=== PATIENT | female | born 2000 | race Caucasian/White ===

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

== ENCOUNTER 2018-01-04 05:46 | Emergency (ER) | payer BC ==
[~2018-01-04] VITALS: Ht 165.1 cm; Wt 81.8 kg
[~2018-01-04 05:46] MED LIST changes: +ULTRAM50 MG PO
[2018-01-04 05:51] VITALS: Ht 165.1 cm; Wt 81.8 kg
[2018-01-04 07:23] LABS: HCG URINE NEGATIVE (NEGATIVE)
[2018-01-04 07:31] LABS: APPEARANCE CLEAR (CLEAR); COLOR YELLOW (YELLOW)
[2018-01-04 07:32] LABS: BILIRUBIN NEGATIVE (NEGATIVE); GLUCOSE NEGATIVE (NEGATIVE); KETONE NEGATIVE (NEGATIVE); NITRITE NEGATIVE (NEGATIVE); PROTEIN NEGATIVE (NEGATIVE); UROBILINOGEN NORMAL (NORMAL)
[2018-01-04 07:34] LABS: BACTERIA NONE SEEN /hpf (NONE SEEN); EPITHELIAL CELLS 0-5 /hpf (0-5); RED CELLS - URINE 0-5 /hpf (0-5); WHITE CELLS - URINE 0-5 /hpf (0-5)
[2018-01-04 07:40] LABS: BASOPHILS 0.3 % (0-2); EOSINOPHILS 1.4 % (0-7); HEMOGLOBIN 12.9 g/dL (12-16); IMMATURE GRANULOCYTES 0.1 % (0-5); LYMPHOCYTES 26.1 % (15-50); MCH 29.5 pg (26.0-34.0); MCHC 34.9 g/dL (31.0-37.0); MCV 84.7 fL (80.0-100.0); MONOCYTES 5.5 % (2-11); NEUTROPHILS 66.6 % (40-80); PLATELET COUNT 239 10x3/uL (130-400); RBC 4.37 10x6/uL (4.00-5.40); RDW 13.1 % (11.5-14.5); WBC 7.3 10x3/uL (4.8-10.8)
[2018-01-04 07:56] LABS: ALBUMIN 3.8 g/dL (3.4-5.0); ALKALINE PHOSPHATASE 77 U/L (46-116); ALT (SGPT) 25 U/L (10-68); BILIRUBIN - TOTAL 0.42 mg/dL (0.2-1.3); CALC OSMOLALITY 272 mosm/kg (275-300); CALCIUM 8.5 mg/dL (8.5-10.1); CARBON DIOXIDE 27.3 mmol/L (21.0-32.0); CHLORIDE - SERUM 103 mmol/L (98-107); CREATININE - SERUM 0.7 mg/dL (0.6-1.3); GLUCOSE 95 mg/dL (74-106); POTASSIUM - SERUM 3.7 mmol/L (3.5-5.1); PROTEIN - SERUM 7.5 g/dL (6.4-8.2); SODIUM 137 mmol/L (136-145); UREA NITROGEN 9 mg/dL (7-18); eGFR NON AFRICAN AMERICAN > 90 mL/min (90-120)
[2018-01-04 08:29] LABS: PRO BNP 13 pg/mL (0-125); TROPONIN-I < 0.017 ng/mL (0.000-0.060)
[2018-01-04 10:07] VITALS: BP 119/79
== END 2018-01-04 10:11 | disposition home or self-care (01) ==
LOC: D.ER 05:46
PROVIDERS: Family Medicine
DX: R55 Syncope and collapse (principal)

== ENCOUNTER 2018-01-06 14:41 | Emergency (ER) | payer BC ==
[~2018-01-06] VITALS: Ht 165.1 cm; Wt 81.8 kg
[2018-01-06 14:54] VITALS: Ht 165.1 cm; Wt 81.8 kg
[2018-01-06 15:18] LABS: BASOPHILS 0.2 % (0-2); EOSINOPHILS 0.7 % (0-7); HEMATOCRIT 37.1 % (36.0-48.0); MCH 29.7 pg (26.0-34.0); MCV 84.7 fL (80.0-100.0); MONOCYTES 5.1 % (2-11); PLATELET COUNT 243 10x3/uL (130-400); RBC 4.38 10x6/uL (4.00-5.40); WBC 8.3 10x3/uL (4.8-10.8)
[2018-01-06 15:26] LABS: HCG SERUM NEGATIVE (NEGATIVE)
[2018-01-06 15:32] LABS: ALBUMIN 3.8 g/dL (3.4-5.0); ALKALINE PHOSPHATASE 76 U/L (46-116); ALT (SGPT) 25 U/L (10-68); BILIRUBIN - TOTAL 0.55 mg/dL (0.2-1.3); CALC OSMOLALITY 275 mosm/kg (275-300); CALCIUM 8.5 mg/dL (8.5-10.1); CHLORIDE - SERUM 103 mmol/L (98-107); CREATININE - SERUM 0.9 mg/dL (0.6-1.3); GLUCOSE 82 mg/dL (74-106); POTASSIUM - SERUM 3.5 mmol/L (3.5-5.1); PROTEIN - SERUM 7.5 g/dL (6.4-8.2); SODIUM 138 mmol/L (136-145); UREA NITROGEN 15 mg/dL (7-18); eGFR NON AFRICAN AMERICAN 85 mL/min (90-120)
[2018-01-06 17:06] LABS: APPEARANCE CLEAR (CLEAR); BILIRUBIN NEGATIVE (NEGATIVE); COLOR YELLOW (YELLOW); GLUCOSE NEGATIVE (NEGATIVE); KETONE NEGATIVE (NEGATIVE); NITRITE NEGATIVE (NEGATIVE); PROTEIN NEGATIVE (NEGATIVE); SPECIFIC GRAVITY 1.015 (1.005-1.020); UROBILINOGEN NORMAL (NORMAL)
[2018-01-06 17:08] LABS: BACTERIA FEW /hpf (NONE SEEN); EPITHELIAL CELLS 0-5 /hpf (0-5); WHITE CELLS - URINE 0-5 /hpf (0-5)
[2018-01-06 19:35] VITALS: BP 112/63
== END 2018-01-06 19:18 | disposition home or self-care (01) ==
LOC: D.ER 14:41
PROVIDERS: Emergency Medicine
DX: R55 Syncope and collapse (principal); Z86.79 Personal history of other diseases of the circulatory system; S09.90XA Unspecified injury of head, initial encounter; W18.30XA Fall on same level, unspecified, initial encounter; Y93.89 Activity, other specified; Y92.019 Unspecified place in single-family (private) house as the place of occurrence of the external cause

== ENCOUNTER 2018-01-22 01:12 | Emergency (ER) | payer BC ==
[~2018-01-22] VITALS: Ht 165.1 cm; Wt 79.5 kg
[2018-01-22 01:17] VITALS: Ht 165.1 cm; Wt 79.5 kg
[2018-01-22 02:10] LABS: BASOPHILS 0.4 % (0-2); EOSINOPHILS 3.1 % (0-7); HEMATOCRIT 36.5 % (36.0-48.0); HEMOGLOBIN 12.4 g/dL (12-16); IMMATURE GRANULOCYTES 0.1 % (0-5); LYMPHOCYTES 33.6 % (15-50); MCH 29.2 pg (26.0-34.0); MCV 86.1 fL (80.0-100.0); MEAN PLATELET VOLUME 8.9 fL (7.4-10.4); NEUTROPHILS 56.8 % (40-80); PLATELET COUNT 240 10x3/uL (130-400); RBC 4.24 10x6/uL (4.00-5.40); WBC 7.5 10x3/uL (4.8-10.8)
[2018-01-22 02:22] LABS: HCG SERUM NEGATIVE (NEGATIVE)
[2018-01-22 02:28] LABS: ALBUMIN 3.6 g/dL (3.4-5.0); ALKALINE PHOSPHATASE 78 U/L (46-116); ALT (SGPT) 38 U/L (10-68); BILIRUBIN - TOTAL 0.39 mg/dL (0.2-1.3); CALC OSMOLALITY 284 mosm/kg (275-300); CALCIUM 8.5 mg/dL (8.5-10.1); CARBON DIOXIDE 29.8 mmol/L (21.0-32.0); CHLORIDE - SERUM 106 mmol/L (98-107); CREATININE - SERUM 0.7 mg/dL (0.6-1.3); GLUCOSE 104 mg/dL (74-106); PROTEIN - SERUM 7.1 g/dL (6.4-8.2); SODIUM 143 mmol/L (136-145); UREA NITROGEN 13 mg/dL (7-18); eGFR NON AFRICAN AMERICAN > 90 mL/min (90-120)
[2018-01-22 02:41] LABS: CKMB 0.4 U/L (0.0-3.6); CREATINE KINASE 46 UL (21-215); TROPONIN-I < 0.017 ng/mL (0.000-0.060)
[2018-01-22 03:35] LABS: UDS - AMPHET NEGATIVE QUAL (NEGATIVE); UDS - BARB NEGATIVE QUAL (NEGATIVE); UDS - BENZO NEGATIVE QUAL (NEGATIVE); UDS - COCAINE NEGATIVE QUAL (NEGATIVE); UDS - OPIATE NEGATIVE QUAL (NEGATIVE); UDS - PCP NEGATIVE QUAL (NEGATIVE); UDS - THC NEGATIVE QUAL (NEGATIVE)
[2018-01-22 03:43] LABS: APPEARANCE HAZY (CLEAR); BILIRUBIN NEGATIVE (NEGATIVE); COLOR YELLOW (YELLOW); GLUCOSE NEGATIVE (NEGATIVE); KETONE NEGATIVE (NEGATIVE); NITRITE POSITIVE (NEGATIVE); PROTEIN NEGATIVE (NEGATIVE); UROBILINOGEN NORMAL (NORMAL)
[2018-01-22 03:44] LABS: BACTERIA MANY /hpf (NONE SEEN); EPITHELIAL CELLS 0-5 /hpf (0-5); RED CELLS - URINE NONE SEEN /hpf (0-5); WHITE CELLS - URINE 0-5 /hpf (0-5)
[2018-01-22] MEDS ORDERED: OMNICEF300 MG PO (04:10)
[2018-01-22 04:44] VITALS: BP 110/64
== END 2018-01-22 04:44 | disposition home or self-care (01) ==
LOC: D.ER 01:12
PROVIDERS: Family Medicine
DX: R07.9 Chest pain, unspecified (principal); Z86.79 Personal history of other diseases of the circulatory system; N39.0 Urinary tract infection, site not specified; R06.02 Shortness of breath; D66 Hereditary factor VIII deficiency

== ENCOUNTER → 2018-06-05 19:54 | Outpatient (CLI) | payer BC ==
[2018-01-22 01:17] VITALS: BMI 29.1
[~2018-06-05 19:54] MED LIST changes: +OMNICEF300 MG PO
[2018-06-05 20:34] LABS: APPEARANCE CLEAR (CLEAR); COLOR YELLOW (YELLOW); GLUCOSE NEGATIVE (NEGATIVE); KETONE NEGATIVE (NEGATIVE); NITRITE NEGATIVE (NEGATIVE); PROTEIN NEGATIVE (NEGATIVE)
[2018-06-05 20:35] LABS: BILIRUBIN NEGATIVE (NEGATIVE); UROBILINOGEN NORMAL (NORMAL)
== END | disposition home or self-care (01) ==
LOC: D.LDO 19:54
PROVIDERS: Obstetrics & Gynecology
DX: O26.899 Other specified pregnancy related conditions, unspecified trimester (principal); Z3A.00 Weeks of gestation of pregnancy not specified

== ENCOUNTER 2018-07-13 16:51 | Inpatient (IN) | payer BC ==
[~2018-07-13] VITALS: Ht 157.5 cm; Wt 81.2 kg
[2018-07-13 18:06] LABS: APPEARANCE CLOUDY (CLEAR); BILIRUBIN NEGATIVE (NEGATIVE); COLOR YELLOW (YELLOW); GLUCOSE NEGATIVE (NEGATIVE); KETONE MODERATE mg/dL (NEGATIVE); NITRITE NEGATIVE (NEGATIVE); PROTEIN 3+ mg/dL (NEGATIVE); SPECIFIC GRAVITY 1.015 (1.005-1.020)
[2018-07-13 18:07] LABS: BACTERIA MODERATE /hpf (NONE SEEN); EPITHELIAL CELLS 0-5 /hpf (0-5); MUCUS <1+ /lpf (NONE SEEN); WHITE CELLS - URINE 25-50 /hpf (0-5)
[2018-07-13] MEDS ORDERED: ZOFRAN4 MG PO (18:21)
[2018-07-13] MEDS ORDERED: MACROBID100 MG PO (18:21)
[2018-07-13 19:51] VITALS: BP 129/76
[2018-07-13 21:19] VITALS: BP 119/71; BMI 32.8
[2018-07-13 21:19] LABS: BASOPHILS 0.1 % (0-2); EOSINOPHILS 0 % (0-7); HEMATOCRIT 33.6 % (36.0-48.0); HEMOGLOBIN 11.6 g/dL (12-16); IMMATURE GRANULOCYTES 0.3 % (0-5); LYMPHOCYTES 12.1 % (15-50); MCH 30.1 pg (26.0-34.0); MCHC 34.5 g/dL (31.0-37.0); MCV 87.3 fL (80.0-100.0); MEAN PLATELET VOLUME 8.4 fL (7.4-10.4); MONOCYTES 4.8 % (2-11); NEUTROPHILS 82.7 % (40-80); PLATELET COUNT 204 10x3/uL (130-400); RBC 3.85 10x6/uL (4.00-5.40); RDW 13.9 % (11.5-14.5); WBC 6.7 10x3/uL (4.8-10.8)
[2018-07-13 21:40] LABS: ALBUMIN 2.8 g/dL (3.4-5.0); ALKALINE PHOSPHATASE 98 U/L (46-116); ALT (SGPT) 23 U/L (10-68); BILIRUBIN - TOTAL 0.78 mg/dL (0.2-1.3); CALC OSMOLALITY 276 mosm/kg (275-300); CALCIUM 7.9 mg/dL (8.5-10.1); CARBON DIOXIDE 21.7 mmol/L (21.0-32.0); CHLORIDE - SERUM 102 mmol/L (98-107); CREATININE - SERUM 0.6 mg/dL (0.6-1.3); GLUCOSE 126 mg/dL (74-106); PROTEIN - SERUM 7.5 g/dL (6.4-8.2); SODIUM 139 mmol/L (136-145); UREA NITROGEN 4 mg/dL (7-18); eGFR NON AFRICAN AMERICAN > 90 mL/min (90-120)
[2018-07-14 13:38] VITALS: Ht 157.5 cm; Wt 81.2 kg
[2018-07-15 07:41] VITALS: BP 109/62
--- NOTE | 2018-07-15 07:41 | NUR ---
SEE [facility] FOR NOTES ON ANTEPARTUM PT.
[2018-07-15] MEDS ORDERED: TYLENOL W/CODEI1 TAB PO (08:53)
[2018-07-15] MEDS ORDERED: MACROBID100 MG PO (08:53)
== END 2018-07-15 09:47 | disposition home or self-care (01) | DRG 833 ==
LOC: D.ER 16:51 → D.LD 19:41
PROVIDERS: Emergency Medicine; ADMIT Obstetrics & Gynecology; ATTEND Obstetrics & Gynecology
DX: O23.02 Infections of kidney in pregnancy, second trimester (principal); Z3A.26 26 weeks gestation of pregnancy

== ENCOUNTER → 2018-07-24 09:53 | Outpatient (CLI) | payer BC ==
[2018-07-14 13:38] VITALS: BMI 32.7
[~2018-07-24 09:53] MED LIST changes: +MACROBID100 MG PO; +TYLENOL W/CODEI1 TAB PO; +ZOFRAN4 MG PO
[2018-07-24 11:03] LABS: HEMATOCRIT 35.1 % (36.0-48.0); HEMOGLOBIN 12.2 g/dL (12-16); MCH 30.2 pg (26.0-34.0); MCHC 34.8 g/dL (31.0-37.0); MCV 86.9 fL (80.0-100.0); MEAN PLATELET VOLUME 9.1 fL (7.4-10.4); RBC 4.04 10x6/uL (4.00-5.40); RDW 14.2 % (11.5-14.5); WBC 10.9 10x3/uL (4.8-10.8)
[2018-07-24 11:04] LABS: PLATELET COUNT 254 10x3/uL (130-400)
[2018-07-24 11:19] LABS: ALBUMIN 2.8 g/dL (3.4-5.0); ALKALINE PHOSPHATASE 88 U/L (46-116); ALT (SGPT) 23 U/L (10-68); BILIRUBIN - TOTAL 1.12 mg/dL (0.2-1.3); CALC OSMOLALITY 272 mosm/kg (275-300); CALCIUM 8.1 mg/dL (8.5-10.1); CARBON DIOXIDE 24.3 mmol/L (21.0-32.0); CHLORIDE - SERUM 102 mmol/L (98-107); CREATININE - SERUM 0.5 mg/dL (0.6-1.3); GLUCOSE 113 mg/dL (74-106); POTASSIUM - SERUM 3.2 mmol/L (3.5-5.1); SODIUM 137 mmol/L (136-145); UREA NITROGEN 7 mg/dL (7-18); eGFR NON AFRICAN AMERICAN > 90 mL/min (90-120)
[2018-07-24 11:32] LABS: EOSINOPHILS 1 % (0-7); LYMPHOCYTES 6 % (15-50); MONOCYTES 1 % (2-11); NEUTROPHILS 88 % (40-80); PLATELET ESTIMATE NORMAL
== END | disposition home or self-care (01) ==
LOC: D.LDO 09:53
PROVIDERS: ATTEND Obstetrics & Gynecology
DX: O26.899 Other specified pregnancy related conditions, unspecified trimester (principal); Z3A.00 Weeks of gestation of pregnancy not specified

== ENCOUNTER → 2018-08-27 11:03 | Outpatient (CLI) | payer BC ==
[2018-07-14 13:38] VITALS: BMI 32.7
[2018-08-27 11:43] LABS: CALC OSMOLALITY 278 mosm/kg (275-300); CALCIUM 8.7 mg/dL (8.5-10.1); CARBON DIOXIDE 21.2 mmol/L (21.0-32.0); CHLORIDE - SERUM 106 mmol/L (98-107); CREATININE - SERUM 0.5 mg/dL (0.6-1.3); GLUCOSE 105 mg/dL (74-106); POTASSIUM - SERUM 3.6 mmol/L (3.5-5.1); SODIUM 141 mmol/L (136-145); UREA NITROGEN 6 mg/dL (7-18); eGFR NON AFRICAN AMERICAN > 90 mL/min (90-120)
== END | disposition home or self-care (01) ==
LOC: D.LDO 11:03
PROVIDERS: ATTEND Obstetrics & Gynecology
DX: O26.899 Other specified pregnancy related conditions, unspecified trimester (principal); Z3A.33 33 weeks gestation of pregnancy; R55 Syncope and collapse

== ENCOUNTER 2018-09-16 02:25 | Emergency (ER) | payer BC ==
[~2018-09-16] VITALS: Ht 157.5 cm; Wt 85.5 kg
[2018-09-16 02:32] VITALS: BP 135/110; Ht 157.5 cm; Wt 85.5 kg
== END 2018-09-16 02:53 | disposition short-term general hospital (02) ==
LOC: D.ER 02:25
DX: O26.893 Other specified pregnancy related conditions, third trimester (principal); Z3A.36 36 weeks gestation of pregnancy; T14.8XXA Other injury of unspecified body region, initial encounter; Y04.2XXA Assault by strike against or bumped into by another person, initial encounter; Y93.89 Activity, other specified; Y92.89 Other specified places as the place of occurrence of the external cause; R10.9 Unspecified abdominal pain

== ENCOUNTER → 2018-09-16 03:00 | Outpatient (CLI) | payer BC ==
[2018-09-16 02:32] VITALS: BMI 34.4
[2018-09-16 04:36] LABS: BASOPHILS 0.1 % (0-2); EOSINOPHILS 0.5 % (0-7); HEMATOCRIT 34.8 % (36.0-48.0); HEMOGLOBIN 12.3 g/dL (12-16); IMMATURE GRANULOCYTES 0.5 % (0-5); LYMPHOCYTES 21.4 % (15-50); MCHC 35.3 g/dL (31.0-37.0); MCV 87.7 fL (80.0-100.0); MEAN PLATELET VOLUME 9.3 fL (7.4-10.4); MONOCYTES 4.5 % (2-11); PLATELET COUNT 221 10x3/uL (130-400); RBC 3.97 10x6/uL (4.00-5.40); RDW 13.9 % (11.5-14.5); WBC 10.4 10x3/uL (4.8-10.8)
[2018-09-16 04:41] LABS: APPEARANCE CLEAR (CLEAR); BILIRUBIN NEGATIVE (NEGATIVE); COLOR YELLOW (YELLOW); GLUCOSE NEGATIVE (NEGATIVE); KETONE NEGATIVE (NEGATIVE); NITRITE NEGATIVE (NEGATIVE); PROTEIN NEGATIVE (NEGATIVE); SPECIFIC GRAVITY 1.025 (1.005-1.020); UROBILINOGEN NORMAL (NORMAL)
[2018-09-16 04:46] LABS: APTT 25.4 SECONDS (22.8-39.4); INR 0.97 (0.85-1.17); PROTIME 12.4 SECONDS (11.6-15.0)
== END | disposition home or self-care (01) ==
LOC: D.LDO 03:00
PROVIDERS: ATTEND Obstetrics & Gynecology
DX: O26.893 Other specified pregnancy related conditions, third trimester (principal)

== ENCOUNTER → 2018-09-17 10:23 | Outpatient (CLI) | payer BC ==
[2018-09-16 02:32] VITALS: BMI 34.4
== END | disposition home or self-care (01) ==
LOC: D.LDO 10:23
PROVIDERS: ATTEND Obstetrics & Gynecology
DX: O26.893 Other specified pregnancy related conditions, third trimester (principal); Z3A.35 35 weeks gestation of pregnancy

== ENCOUNTER → 2018-09-22 10:35 | Outpatient (CLI) | payer BC ==
[2018-09-16 02:32] VITALS: BMI 34.4
[2018-09-22 12:28] LABS: BASOPHILS 0.2 % (0-2); EOSINOPHILS 0.5 % (0-7); HEMOGLOBIN 12.6 g/dL (12-16); IMMATURE GRANULOCYTES 0.2 % (0-5); LYMPHOCYTES 22.6 % (15-50); MCH 30.8 pg (26.0-34.0); MEAN PLATELET VOLUME 9.2 fL (7.4-10.4); MONOCYTES 4.5 % (2-11); PLATELET COUNT 192 10x3/uL (130-400); RBC 4.09 10x6/uL (4.00-5.40); RDW 13.9 % (11.5-14.5); WBC 8.2 10x3/uL (4.8-10.8)
[2018-09-22 12:34] LABS: UDS - AMPHET NEGATIVE QUAL (NEGATIVE); UDS - BARB NEGATIVE QUAL (NEGATIVE); UDS - BENZO NEGATIVE QUAL (NEGATIVE); UDS - COCAINE NEGATIVE QUAL (NEGATIVE); UDS - OPIATE NEGATIVE QUAL (NEGATIVE); UDS - PCP NEGATIVE QUAL (NEGATIVE); UDS - THC NEGATIVE QUAL (NEGATIVE)
[2018-09-22 12:43] LABS: APPEARANCE CLEAR (CLEAR); BILIRUBIN NEGATIVE (NEGATIVE); COLOR STRAW (YELLOW); GLUCOSE NEGATIVE (NEGATIVE); KETONE NEGATIVE (NEGATIVE); NITRITE NEGATIVE (NEGATIVE); PROTEIN NEGATIVE (NEGATIVE); SPECIFIC GRAVITY 1.005 (1.005-1.020); UROBILINOGEN NORMAL (NORMAL)
[2018-09-22 12:45] LABS: BACTERIA FEW /hpf (NONE SEEN); EPITHELIAL CELLS 0-5 /hpf (0-5); RED CELLS - URINE 0-5 /hpf (0-5); WHITE CELLS - URINE NSEEN /hpf (0-5)
== END | disposition home or self-care (01) ==
LOC: D.LDO 10:35
PROVIDERS: ATTEND Obstetrics & Gynecology
DX: O26.853 Spotting complicating pregnancy, third trimester (principal); Z3A.37 37 weeks gestation of pregnancy

== ENCOUNTER → 2018-09-30 14:55 | Outpatient (CLI) | payer BC ==
[2018-09-16 02:32] VITALS: BMI 34.4
[2018-09-30 15:47] LABS: APPEARANCE CLEAR (CLEAR); BILIRUBIN NEGATIVE (NEGATIVE); COLOR YELLOW (YELLOW); GLUCOSE NEGATIVE (NEGATIVE); KETONE NEGATIVE (NEGATIVE); NITRITE NEGATIVE (NEGATIVE); PROTEIN NEGATIVE (NEGATIVE); SPECIFIC GRAVITY 1.015 (1.005-1.020); UROBILINOGEN NORMAL (NORMAL)
--- NOTE | 2018-09-30 19:32 | NUR ---
HUMIDITY IN ROOM AT 74%, DR WINTER AWARE, PROCEEDED ON WITH [facility]. 1912 VIABLE BABY BOY DELIVERD, CORD BLOOD AND GASES DONE AND SENT OUT, MARK.
--- NOTE | 2018-09-30 20:17 | NUR ---
FUNDUS IS BOGGY, MIDLINE 2U. MAUREEN PAD IN PLACE, NO CLOTS PRESENT. WILL CONTINUE TO MONITOR.
== END | disposition home or self-care (01) ==
LOC: D.LDO 14:55
PROVIDERS: ATTEND Obstetrics & Gynecology
DX: O26.893 Other specified pregnancy related conditions, third trimester (principal); Z3A.37 37 weeks gestation of pregnancy

== ENCOUNTER 2018-09-30 16:41 | Inpatient (IN) | payer BC ==
[~2018-09-30] VITALS: Ht 157.5 cm; Wt 87.5 kg
[2018-09-30] VITALS (8 sets, daily range): BP systolic 125–135; BP diastolic 67–94; Ht 157.5 cm; Wt 87.5 kg
[2018-09-30 17:22] LABS: HEMATOCRIT 37.2 % (36.0-48.0); HEMOGLOBIN 13.3 g/dL (12-16); MCH 31.1 pg (26.0-34.0); MCHC 35.8 g/dL (31.0-37.0); MCV 86.9 fL (80.0-100.0); MEAN PLATELET VOLUME 9.5 fL (7.4-10.4); RBC 4.28 10x6/uL (4.00-5.40); WBC 10.7 10x3/uL (4.8-10.8)
[2018-09-30 18:29] LABS: APTT 27.2 SECONDS (22.8-39.4); INR 0.96 (0.85-1.17); PROTIME 12.3 SECONDS (11.6-15.0)
--- NOTE | 2018-09-30 20:37 | NUR ---
RECEIVED PT VIA BED FROM POST C/S PER DR WINTER, PT TO ROOM 1273, IV IN RIGHT WRIST INTACT WITH NO REDNESS OR EDEMA INFUSING NS WITH PITOCIN VIA PUMP AT 125 ML/HR, VS INITIATED, FF, ML, U/U, LITE BLEEDING NOTED WITH NO CLOTS, BIKINI INC WITH SMALL DRESSING INTACT WITH LITE SMALL DRAINAGE NOTED, ICE PACK TO ABD, PADRON CATH INTACT DRAINING DARK YELLOW URINE, SCD'S ON AND CONNECTED TO PUMP AND WORKING PROPERLY, PT ORIENTED TO ROOM, BED IN LOW POSITION, SIDE RAILS X 2, CALL LIGHT IN REACH, FAMILY TO ROOM
--- NOTE | 2018-09-30 21:33 | NUR ---
ADM TAMERA SIMONP PER MD ORDERS FOR PAIN
--- NOTE | 2018-09-30 23:00 | NUR ---
DR WINTER ON UNIT, REPORT OF LOW OUTPUT, DR WINTER WILL PUT ORDERS IN FOR BOLUS
--- NOTE | 2018-09-30 23:29 | NUR ---
BOLUS INITIATED PER MD ORDERS, PT REQUESTED AND SERVED SHER AND JOCELYN, PEYTONIES KINGSTONHER NEEDS, FOB IN ROOM
--- NOTE | 2018-10-01 00:25 | NUR ---
EMPTIED PADRON, MAUREEN CARE DONE WITH WET WARM WASH CLOTHS, LITE-MOD BLEEDING NOTED WITH 1 QUARTER SIZE CLOT NOTED, BLUE CHUX AND MAUREEN PAD CHANGED
--- NOTE | 2018-10-01 00:25 | NUR ---
IV SLIGHTLY INFILTRATED, IV DISCONTINUED, PRESSURE HELD, BANDAID APPLIED, WILL HAVE L&D NURSE COME TO RESTART IV
--- NOTE | 2018-10-01 00:40 | NUR ---
NICOLASA AYERS RN TO ROOM FOR IV START, ATTEMPTED TWICE WITH NO SUCCESS, WILL HAVE SARAY STAPLES RN, TEST EXAMINER COME TO ATTEMPT
--- NOTE | 2018-10-01 01:00 | NUR ---
PT BABY, REQUESTS TO TRY IV AFTER
--- NOTE | 2018-10-01 01:49 | NUR ---
PT FINISHED , INFORMED PT THAT SARAY STAPLES RN WILL BE IN SOON SHE CAN FOR IV, PT C/O INC PAIN, INFORMED PT THAT I WILL GO AHEAD AND ADM PO PAIN MED AT THIS TIME SINCE IT IS ORDERED AND THATS WHAT SHE WILL BE TAKING ANYWAY, PT VERBALIZES UNDERSTANDING, PT REPORTS THAT SHE DOESN'T HAVE A PROBLEM TAKING PO MEDS, ADM PERCOCET PER MD ORDERS, SEE SHER GAVIRIA PROVIDED FOR SNACK, PT DENIES FURHTER NEEDS
[2018-10-01 02:22] LABS: BASOPHILS 0.1 % (0-2); EOSINOPHILS 0 % (0-7); HEMATOCRIT 30.5 % (36.0-48.0); HEMOGLOBIN 10.7 g/dL (12-16); IMMATURE GRANULOCYTES 0.2 % (0-5); LYMPHOCYTES 8.3 % (15-50); MCH 30.4 pg (26.0-34.0); MCHC 35.1 g/dL (31.0-37.0); MCV 86.6 fL (80.0-100.0); MEAN PLATELET VOLUME 9.4 fL (7.4-10.4); NEUTROPHILS 88.4 % (40-80); PLATELET COUNT 203 10x3/uL (130-400); RBC 3.52 10x6/uL (4.00-5.40)
[2018-10-01 02:23] LABS: WBC 13.5 10x3/uL (4.8-10.8)
--- NOTE | 2018-10-01 02:42 | NUR ---
SARAY STAPLES, RN NURSE PRESCHOOL TEACHER AIDE TO ROOM FOR IV START, ATTEMPTED ONCE WITH NO SUCCESS
--- NOTE | 2018-10-01 02:55 | NUR ---
CALLED MED 2, WILL SEND NURSE DOWN TO TRY IV START
--- NOTE | 2018-10-01 03:05 | NUR ---
LIZZY TYLER RN TO ROOM FOR IV START
--- NOTE | 2018-10-01 03:35 | NUR ---
THIS RN TO ROOM, LIZZY TYLER, RN REPORTS TO HE STARTED IV RIGHT OBOVE AREA OF PREVIOUS IV, LIZZY TYLER, RN LEAVES ROOM, THIS RN RESTARTED NS WITH PITOCIN PER MD ORDERS, SEE EMAR, IV SHOWING OCCLUDED, DISCONNECTED, ATTEMPTED SALINE FLUSH, FLUSHED SLOW, NS WITH PITOCIN RESTARTED, PT STATES "IT'S REALLY HURTING", IV STOPPED, WILL HAVE SOMEONE ELSE COME AND START ANOTHER IV, PT VERBALIZES UNDERSTANDING, FOB AND BABY IN OPEN CRIB CART AT BEDSIDE
--- NOTE | 2018-10-01 03:48 | NUR ---
SPOKE TO SANTIAGO AL RN FROM ICU, SHE REPORTS THAT SHE WILL COME AND TRY TO START IV
--- NOTE | 2018-10-01 03:56 | NUR ---
SANTIAGO AL RN TO ROOM FOR IV START
--- NOTE | 2018-10-01 04:15 | NUR ---
SANTIAGO AL RN OUT OF ROOM, REPORTS THAT SHE STARTED IV, 2ND ATTEMPT IN LEFT HAND
--- NOTE | 2018-10-01 04:20 | NUR ---
THIS RN TO ROOM, RESTARTED NS WITH PITOCIN AT THIS TIME
[2018-10-01 04:29] VITALS: BP 122/85
--- NOTE | 2018-10-01 04:29 | NUR ---
BHARATEF HUNG IVPB PER MD ORDERS, SEE EMAR, VS OBTAINED, MAUREEN CARE DONE WITH WET WARM WASH CLOTHS, LITE-MOD BLEEDING NOTED WITH NO CLOTS, PINK PAD, BLUE CHUX AND MAUREEN PAD CHANGED, FRESH ICE PACK TO ABD, I&O'S COLLECTED, PT C/O INC PAIN, WILL ADM PAIN MED WHEN DUE, FOB, INFANT IN OPEN CRIB CART AND PT'S MOM AND SISTER AT BEDSIDE
--- NOTE | 2018-10-01 05:47 | NUR ---
PT AWAKE, VISITING WITH FOB AND FAMILY, PT'S MOM HOLDING INFANT, ADM PERCOCET AND HUNG LR TO INFUSE AT 150 ML/HR PER MD ORDERS, SEE EMAR, PT DENIES FURTHER NEEDS
--- NOTE | 2018-10-01 07:00 | NUR ---
SHIFT REPORT TO DAY SHIFT
[2018-10-01 07:25] VITALS: BP 118/69
--- NOTE | 2018-10-01 07:25 | NUR ---
RECEIVED PT SITTING IN HIGH VELA'S POSITION IN BED. VISITS WITH FAMILY. VSS. HRRR WITHOUT AUDIBLE MURMUR. BBS CLEAR. BS X 4. ABDOMEN SOFT/NON-DISTENDED. ABDOMINAL DRESSING DRY WITH OLD SEROSANGUINOUS DRAINAGE NOTED/CIRCLED. FUNDUS FIRM AT U/U. RUBRA LOCHIA SMALL AMT. PERIPAD CHANGED. PADRON TO GRAVITY DRAINING DARK, YELLOW URINE. NEG HOMANS' SIGN. PPP. NO EDEMA NOTED TO BLE. TEDS AND SCDS ON BLE. PUMP ON. PIV OF LR INFUSING AT 150 ML/HR. SITE CLEAR TO LEFT HAND. FRESH ICE PACK TO INCISION. ICE WATER AND LEMON-NEWTOK SODA PROVIDED TO PT. PT ENCOURAGED TO PO HYDRATE. VERBALIZES UNDERSTANDING. SR UPX 2. CALL LIGHT IN REACH.
--- NOTE | 2018-10-01 08:30 | NUR ---
PT SITTING UP IN BED. STATES "I THINK I NEED MY PAD CHANGED". PERIPAD CHANGED WITH A SMALL DIME SIZED AMT OF MAG GEIGER NOTED. PT DENIES OTHER NEEDS OR C/O.
--- NOTE | 2018-10-01 09:15 | NUR ---
PT SITTING UP IN BED. STATES "I SENT THE BABY TO THE NURSERY SO I COULD TAKE A NAP AND ALL I CAN DO IS SIT HERE AND WISH HE WAS BACK IN HERE". PT ENCOURAGED TO REST AT THIS TIME. PT VERBALIZES UNDERSTANDING.
[2018-10-01 09:19] LABS: UDS - AMPHET NEGATIVE QUAL (NEGATIVE); UDS - BARB NEGATIVE QUAL (NEGATIVE); UDS - BENZO NEGATIVE QUAL (NEGATIVE); UDS - COCAINE NEGATIVE QUAL (NEGATIVE); UDS - OPIATE NEGATIVE QUAL (NEGATIVE); UDS - PCP NEGATIVE QUAL (NEGATIVE); UDS - THC NEGATIVE QUAL (NEGATIVE)
--- NOTE | 2018-10-01 10:15 | NUR ---
PT SITTING UP IN BED. VISITS WITH SO IN ROOM. REQUESTS BE BROUGHT TO ROOM AT THIS TIME FOR FEEDING. NURSERY STAFF NOTIFIED.
--- NOTE | 2018-10-01 10:40 | NUR ---
NURSERY STAFF AT DESK. STATES PT ASKING FOR PILLOW/BLANKET AND NEVER GOT ONE. THIS NURSE TO ROOM WITH PILLOW, SHEETS AND BLANKET. PT STATES "I ASKED FOR THOSE LAST NIGHT AND THEY NEVER BROUGHT THEM".
--- NOTE | 2018-10-01 10:45 | NUR ---
200 ML OF DARK, YELLOW URINE NOTED IN PADRON. PT AGAIN, ENCOURAGED TO PO HYDRATE PT HAS ONLY TAKEN IN 100 ML OF APPLE JUICE AND VERY LITTLE WATER AND LEMON-[place] SODA SINCE 724 THIS AM.
--- NOTE | 2018-10-01 12:16 | NUR ---
PT SO AT DESK. STATES PT REQUESTING PAIN MED. PERCOCET 10/325 GIVEN PO ORDERED.
--- NOTE | 2018-10-01 13:03 | NUR ---
CLARIFICATION ORDER RECEIVED ON ANCEF # OF DOSES TO BE 3 TOTAL. ORDERS RECEIVED.
[2018-10-01 13:07] VITALS: BP 123/63
--- NOTE | 2018-10-01 13:07 | NUR ---
VSS. ABDOMINAL DRESSING WITH OLD SEROSANGUINOUS DISCHARGE NOTED. PERIPAD WITH SMALL AMT OF RUBRA LOCHIA NOTED.
--- NOTE | 2018-10-01 13:15 | NUR ---
PIV CONVERTED TO SALINE LOCK. PADRON DC'D WITH 150 ML OF DARK, YELLOW URINE NOTED IN UROMETER. PT OOB, SLOWLY. PT AMBULATES WITH STEADY GAIT TO BR. PERICARE DONE. GOWN CHANGED. PANTIES AND PAD ON. PT REQUESTS TO AMBULATE IN HALLS AT THIS TIME. LUIZ ACTIVITY WELL.
--- NOTE | 2018-10-01 15:00 | NUR ---
DR WINTER ON UNIT. VISITS WITH PT. ORDER RECEIVED.
--- NOTE | 2018-10-01 16:30 | NUR ---
PT SITTING UP ON COUCH. VISITS WITH FAMILY. DENIES NEEDS OR C/O.
--- NOTE | 2018-10-01 16:56 | OP ---
PATIENT NAME: PEDRO JA MEDICAL RECORD: [id number] :98 LOCATION:[id number] ADMISSION DATE:09/30/18 SURGEON: DON WINTER MD DATE OF OPERATION: 09/30/2018 PREOPERATIVE DIAGNOSES: 1. at 38 weeks and 3 days. 2. Labor. 3. History of supraventricular tachycardia and cardiac ablation. 4. von Willebrand disease. POSTOPERATIVE DIAGNOSES: 1. at 38 weeks and 3 days. 2. Labor. 3. History of supraventricular tachycardia and cardiac ablation. 4. von Willebrand disease PROCEDURE: Primary low transverse section. SURGEON: Don Winter MD TURNER AND FORMER AUTOMATIC: Janusz Wynn. ANESTHESIOLOGIST: Gumaro Meade MD ANESTHESIA: General anesthetic with endotracheal intubation. FINDINGS: Viable male infant, vertex presentation, Apgars 9 and 9, weight 3092 grams. Unremarkable uterus, tubes, and ovaries bilaterally. SPECIMENS REMOVED: Placenta. SPECIMEN DISPOSITION: Discarded. ESTIMATED BLOOD LOSS: 850 cc. FLUIDS: 1700 cc lactated Ringer's. URINE OUTPUT: 30 cc of clear urine. COMPLICATIONS: None. DRAIN: Soto to gravity. INDICATIONS: The patient is a 18-year-old G1, para 0 with a history of cardiac ablation and von Willebrand disease. The patient has been counseled and desires primary low transverse section. The patient is given DDAVP prior to this procedure. Risks, benefits as well as limitations of given to the patient. DESCRIPTION OF PROCEDURE: The patient was taken to the operating room and she was fully started and prepped and draped. The patient undergoes rapid sequence induction and was intubated. Upon release from anesthesia, a low transverse incision was made on the abdomen, carried down to the underlying layer of the fascia, which was opened in the midline and extended out laterally. The rectus OPERATIVE REPORT [id number] PEDRO AJ bellies were dissected free superiorly and inferiorly and then in the midline. The peritoneum was now entered and the peritoneal opening extended. DeLee all-purpose retractors inserted and a low transverse hysterotomy was performed after developing the bladder flap. The was delivered on to the abdomen atraumatically. Cord was doubly clamped and cut and the infant passed to the awaiting attendant. Cord blood samples were now obtained. The placenta was now delivered via Crede maneuver. The uterus exteriorized, cleared of all clot and debris and the hysterotomy closed with a running locked stitch of chromic. Posterior cul-de-sac is irrigated. After irrigating the cul-de-sac, the uterus was returned to the abdomen and hysterotomy was inspected and found to be hemostatic. The rectus bellies and the peritoneum was reapproximated in the midline with a loose interrupted stitch. The rectus bellies were inspected and found to be hemostatic. The fascia was now closed with a running looped PDS. Subcutaneous tissues were irrigated, bleeding vessels cauterized, and skin reapproximated with selina. Sterile dressing is applied. Sponge, lap, needle counts were correct times 2. TRANSINT:[id number] Voice Confirmation ID: [id number] DOCUMENT ID: [id number] DON WINTER MD at 1656 CC: [id number] DICTATION DATE: 09/30/181938 3RD PRESSMAN: 10/01/18 0245 ADM IN [facility] [address] [id number]
[2018-10-01 17:34] VITALS: BP 124/78
--- NOTE | 2018-10-01 17:38 | NUR ---
PT SITTING UP ON COUCH. REPOSITIONS TO BED FOR VS. VSS. PT C/O INCISIONAL PAIN/BURNING OF "8" ON 0-10 PAIN SCALE. PERCOCET 10/325 AND MYLICON 80 MG GIVEN PO ORDERED.
--- NOTE | 2018-10-01 18:00 | NUR ---
PT UP TO SHOWER. LINENS PROVIDED. BED LINENS CHANGED. PT REQUESTS SO TO ASSIST PT WITH SHOWER.
--- NOTE | 2018-10-01 19:00 | NUR ---
REPORT RECEIVED FROM ROME THOMPSON. NO REPORTS OF DISTRESS RECEIVED.
[2018-10-01 19:32] VITALS: BP 109/63
--- NOTE | 2018-10-01 19:32 | NUR ---
PATIENT SITTING UP IN BED HOLDING . PATIENT HANDED TO FATHER. ASSESSMENT AND VITAL SIGNS DONE AT THIS TIME. RESPIRATIONS AT EASE. LUNG SOUNDS CLEAR IN ALL ORTEZ. HEART REGULAR RATE AND RHYTHM. ABDOMEN SOFT AND TENDER TO TOUCH. BOWEL SOUNDS PRESENT IN ALL QUADRANTS. FUNDUS FIRM AND 2 BELOW UMBILICUS. SCANT AMOUNT OF LOCHIA NOTED ON MAUREEN PAD. NO REDNESS, EDEMA, OR DRAINAGE NOTED TO INCISION. JOE INTACT. PATIENT DENIES PASSING GAS, BUT STATES SHE HAS BEEN BURPING. NO EDEMA NOTED TO EXTREMITIES. BARBARA HOSE NOTED TO BLE. SL NOTED TO R HAND. NO REDNESS OR EDEMA NOTED. PATIENT RATES PAIN 5 OUT OF 10 AT THIS TIME. BED IN LOWEST POSITION, SIDE RAILS UP X 2, C/L AND WATER WITHIN REACH.
--- NOTE | 2018-10-01 19:32 | NUR ---
PATIENT SITTING UP IN BED HOLDING . PATIENT HANDED INFANT TO FATHER. ASSESSMENT AND VITAL SIGNS DONE AT THIS TIME. RESPIRATIONS AT EASE. LUNG SOUNDS CLEAR IN ALL ORTEZ. HEART REGULAR RATE AND RHYTHM. ABDOMEN SOFT AND TENDER TO TOUCH. BOWEL SOUNDS PRESENT IN ALL QUADRANTS. FUNDUS FIRM AND 2 BELOW UMBILICUS. SCANT AMOUNT OF LOCHIA NOTED TO MAUREEN PAD. NO REDNESS, EDEMA, OR DRAINAGE NOTED TO INCISION. JOE INTACT, 16 JOE NOTED. PATIENT DENIES PASSING GAS, STATES SHE HAS BURPED A FEW TIMES. NO EDEMA NOTED TO EXTREMITIES. BARBARA HOSJamila NOTED TO BLE. SL TO L HAND. NO REDNESS OR EDEMA NOTED. PATIENT RATES PAIN 5 OUT OF 10. BED IN LOWEST POSITION, SIDE RAILS UP X 2, C/L AND WATER WITHIN REACH.
--- NOTE | 2018-10-01 20:15 | NUR ---
PATIENT AMBULATING IN HALLWAY AT THIS TIME WITH SIGNIFICANT OTHER AT SIDE. DENIES ANY NEEDS OR CONCERNS.
--- NOTE | 2018-10-01 21:14 | NUR ---
PATIENT SITTING UP IN BED. RATES PAIN 8 OUT OF 10. PRN PERCOCET 10/325 ADMINISTERED PO AT THIS TIME. PATIENT HAD AMBULATED TO BATHROOM AND VOIDED 100 CC'S OF DARK YELLOW URINE. BED IN LOWEST POSITION, SIDE RAILS UP X 2, C/L AND WATER WITHIN REACH. PATIENT DENIES ANY FURTHER NEEDS.
--- NOTE | 2018-10-01 22:45 | NUR ---
PATIENT SITTING UP IN BED HOLDING INFANT . STATES PAIN 6 OUT OF 10. DENIES ANY NEEDS AT THIS TIME. BED IN LOWEST POSITION, SIDE RAILS UP X 2,C/L AND WATER WITHIN REACH.
[2018-10-01 23:07] VITALS: BP 117/70
--- NOTE | 2018-10-01 23:30 | NUR ---
PATIENT SITTING UP IN BED HOLDING INFANT. DENIES ANY NEEDS AT THIS TIME. BED IN LOWEST POSITION, SIDE RAILS UP X 2, C/L AND WATER WITHIN REACH.
--- NOTE | 2018-10-02 01:15 | NUR ---
PATIENT AMBULATING TO BR. PATIENT VOIDED 400 CC'S OF DARK YELLOW URINE. PATIENT STATES PAIN 02/12. PRN PERCOCET 10/325 ADMINISTERED PO AT THIS TIME. PATIENT DENIES FURTHER NEEDS. BED IN LOWEST POSITION, SIDE RAILS UP X 2, C/L AND WATER WITHIN REACH.
--- NOTE | 2018-10-02 03:10 | NUR ---
PATIENT LYING IN BED WITH EYES CLOSED. EASILY AROUSED. DENIES ANY NEEDS OR CONCERNS. BED IN LOWEST POSITION, SIDE RAILS UP X 2, C/L AND WATER WITHIN REACH.
[2018-10-02 04:18] VITALS: BP 121/63
--- NOTE | 2018-10-02 04:18 | NUR ---
PATIENT LYING QUIETLY IN BED WITH EYES CLOSED. EASILY AROUSED. VITAL SIGNS DONE AT THIS TIME. DENIES ANY NEEDS OR CONCERNS AT THIS TIME. BED IN LOWEST POSITION, SIDE RAILS UP X 2, C/L AND WATER WITHIN REACH.
--- NOTE | 2018-10-02 05:42 | NUR ---
PATIENT SITTING UP IN BED. STATES SHE JUST AMBULATED TO AND VOIDED. PATIENT VOIDED 600 CC'S OF CLEAR YELLOW URINE. STATE PAIN 10/10 AFTER AMBULATING. PRN PERCOCET 10/325 ADMINISTERED PO AT THIS TIME. PATIENT DENIES FURTHER NEEDS. BED IN LOWEST POSITION, SIDE RAILS UP X 2, C/L AND WATER WITHIN REACH.
--- NOTE | 2018-10-02 06:25 | NUR ---
PATIENT SITTING UP IN BED HOLDING INFANT. STATES PAIN 5 OUT OF 10. DENIES ANY NEEDS OR CONCERNS. BED IN LOWEST POSITION, SIDE RAILS UP X 2, C/L AND WATER WITHIN REACH.
[2018-10-02 07:21] LABS: RAPID PLASMA REAGIN Non Reactive (Non Reactive)
[2018-10-02 07:34] VITALS: BP 114/73
--- NOTE | 2018-10-02 07:34 | NUR ---
SHIFT ASSESSMENT COMPLETED AT THIS TIME. PT AAOX3 SITTING UP IN BED WITH REGULAR MEAL TRAY SERVED. INFANT IN ARMS OF GUEST IN ROOM. GUESTS IN ROOM X3. PT REQUESTING BENADRYL REPORTING GENERALIZED ITCHING. SAME PROVIDED. HR-RRR, PPP, BREATH SOUNDS CLEAR & UNLABORED X2. BOWEL SOUNDS ACTIVE X4. INCISION TO ABD C/D/I WITH JOE. NO ERYTHEMA OR EDEMA NOTED TO SITE.FUNDUS FIRM AND BELOW UMBILICUS. PT REPORTS SCANT TO SMALL LOCHIA WHEN VOIDING, NO CLOTS. 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 PT REQUESTS PIV D/C'D. SL TO LT HAND D/C'D WITH CATH TIP INTACT. PRESSURE HELD TO SITE UNTIL BLEEDING STOPPED. BANDAID PLACED OVER SITE. PT TOLERATED WELL. PT INQUIRES ABOUT PAIN MEDICATION. ADVISED THAT PERCOCET WILL BE AVAILABLE AT 0945. PT IS AGREEABLE AND VERBALIZES UNDERSTANDING. DISCUSSED ROOMING IN IF INFANT DOES NOT GET A D/C ORDER TODAY AND PT IS AGREEABLE TO STATUS CHANGE. ADV WILL AWAIT HIGH WORKER ROUNDS THIS AM. PT DENIES FURTHER NEEDS AT THIS TIME. BED LOW WHEELS LOCKED, CALL LIGHT AND PHONE WITHIN REACH, SIDE RAILS UP X2.
--- NOTE | 2018-10-02 08:15 | NUR ---
ROUNDS MADE. PT SITTING UP IN BED WITH GUESTS IN ROOM X3. DENIES NEEDS AT THIS TIME.
--- NOTE | 2018-10-02 08:27 | NUR ---
Raine Ocasio 10/[birth year] S: Patient states this is her first baby. Baby is doing great with latching, no concerns with sore nipple or problems with . States she thinks is gassy and needs to burp, that's why he is so fussy. Denies questions or concerns. Verbally agrees to speak with pediatric doctor regarding concern with . O: Patient sitting up in bed speaking with family member in room. Infant is being held by family member but is fussy, crying. Congratulated on delivery and asked patient to tell me how things are going with . Praised for . Informed patient takes time, practice, and patience in the beginning. Explained breastmilk composition, benefits of skin to skin, how to correctly hold infant for feedings, positions, feeding cues, and the importance of practicing responsive feeding which help with establishing her milk supply. Asked if any related questions or concerns? Informed patient she may ask Dr. Timmons about her concerns with infant, she is in the nursery now and should be visiting with patient shortly. Please let nursery staff know if help is needed with . A: Patient expresses positive feedback with concerns about infant being fussy and gassy. P: Continue to promote during hospital visit. Tiffany Bowles, CLC
[2018-10-02 10:08] LABS: HIV 1 & 2- RAPID SCREEN NEGATIVE (NEGATIVE)
--- NOTE | 2018-10-02 10:38 | NUR ---
PERCOCET 10/325MG X1 TAB GIVEN FOR PAIN RATED 10/10 AT THIS TIME. PT SITTING UP IN CHAIR AT BEDSIDE WITH IN ARMS. DENIES FURTHER NEEDS AT THIS TIME.
--- NOTE | 2018-10-02 11:46 | NUR ---
PAIN REASSESSMENT COMPLETED. PT RATES PAIN 6/10 AND REPORTS 'IT'S COMING DOWN SOME." DENIES FURTHER NEEDS AT THIS TIME. MMR INFORMATION SHEET PROVIDED.
--- NOTE | 2018-10-02 12:05 | NUR ---
RADHAN RN, FELISA, OUT OF ROOM WITH INFANT IN OPEN CRIB REPORTING PT STATES PAIN IS UNCONTROLLED WITH MEDICATIONS AND UNSURE IF SHE WANTS TO GO HOME IF PAIN IS NOT CONTROLLED. CALL PLACED TO DR WINTER WITHOUT ANSWER. WILL ATTEMPT AGAIN.
--- NOTE | 2018-10-02 13:15 | NUR ---
DR WINTER ON UNIT. REPORT GIVEN THAT PT'S PAIN IS NOT CONTROLLED WITH CURRENT MEDS. V/O RCVD TO GIVE 60MG TORADOL IM NOW.
--- NOTE | 2018-10-02 14:54 | NUR ---
PERCOCET 10/325MG X1 TAB GIVEN FOR PAIN RATED 6/10 AT THIS TIME. PT CURRENTLY . DENIES FURTHER NEEDS.
--- NOTE | 2018-10-02 15:31 | NUR ---
pain reassessment completed. pt rates pain 4/10 currently and tolerable. denies further needs at this time.
--- NOTE | 2018-10-02 16:52 | NUR ---
ROUNDS MADE. PT DENIES NEEDS AT THIS TIME. AWAITING CIRCUMCISION BEFORE D/C TO HOME. WILL CONTINUE TO MONITOR.
--- NOTE | 2018-10-02 17:48 | NUR ---
INFANT TO ROOM POST CIRCUMCISION. PT DENIES NEEDS AT THIS TIME. WILL CONTINUE TO MONITOR.
--- NOTE | 2018-10-02 18:17 | NUR ---
RHOGAM GIVEN PER ORDERS. SEE EMAR FOR ADMINISTRATION. PT DENIES FURTHER NEEDS AT THIS TIME.
--- NOTE | 2018-10-02 19:00 | NUR ---
REPORT RECEIVED FROM FITO THOMPSON. NO REPORTS OF DISTRESS RECEIVED.
--- NOTE | 2018-10-02 19:20 | NUR ---
DISCHARGE INSTRUCTIONS GIVEN TO PATIENT. PATIENT VERBALIZED UNDERSTANDING. INSTRUCTED PATIENT TO KEEP SCHEDULED FOLLOW UP INSTRUCTIONS. PATIENT DENIES ANY QUESTIONS OR CONCERNS.
--- NOTE | 2018-10-02 19:36 | NUR ---
PATIENT AMBULATING IN ROOM. STATES PAIN 6 OUT OF 10. PRN PERCOCET 10/325 ADMINISTERED PO. PATIENT DENIES ANY FURTHER NEEDS.
--- NOTE | 2018-10-02 20:13 | NUR ---
FAMILY MEMBERS TO DESK, REPORT THAT PT IS READY TO BE TAKEN OFF OF UNIT. PT OFF UNIT IN W/C WITH THIS RN IN STABLE CONDITION. INFANT IN CARRIER AND TO AWAITING PRIVATE VECHILE. PLACED IN AWAITING VECHILE BY FAMILY MEMBER. COPY OF DISCHARGE INSTRUCTIONS AND PRESCRIPTIONS IN PT HAND.
== END 2018-10-02 20:13 | disposition home or self-care (01) | DRG 787 ==
LOC: D.LD 16:41
PROVIDERS: ADMIT Obstetrics & Gynecology; ATTEND Obstetrics & Gynecology
PROC: 10D00Z1 Extraction of Products of Conception, Low, Open Approach (ICD-10-PCS; principal; 2018-09-30)
DX: O99.12 Other diseases of the blood and blood-forming organs and certain disorders involving the immune mechanism complicating childbirth (principal); D68.0 Von Willebrand disease; N12 Tubulo-interstitial nephritis, not specified as acute or chronic; Z3A.38 38 weeks gestation of pregnancy; Z37.0 Single live birth; O75.3 Other infection during labor; O9A.32 Physical abuse complicating childbirth

== ENCOUNTER 2020-08-12 17:02 | Outpatient (CLI) | payer BC ==
[~2020-08-12] VITALS: Ht 157.5 cm; Wt 90.9 kg
[2020-08-12 17:05] VITALS: BP 111/72; Ht 157.5 cm; Wt 90.9 kg
[2020-08-12 17:44] LABS: BASOPHILS 0.1 % (0-2); EOSINOPHILS 0.4 % (0-7); HEMATOCRIT 36.7 % (36.0-48.0); HEMOGLOBIN 12.7 g/dL (12-16); IMMATURE GRANULOCYTES 0.2 % (0-5); LYMPHOCYTE ABS# 1.24 10x3/uL (1.18-3.74); LYMPHOCYTES 15.1 % (15-50); MCHC 34.6 g/dL (31.0-37.0); MCV 86.8 fL (80.0-100.0); MEAN PLATELET VOLUME 9.4 fL (7.4-10.4); MONOCYTES 3.5 % (2-11); NEUTROPHIL ABS# 6.64 10x3/uL (1.56-6.13); NEUTROPHILS 80.7 % (40-80); PLATELET COUNT 233 10x3/uL (130-400); RBC 4.23 10x6/uL (4.00-5.40); RDW 13.9 % (11.5-14.5); WBC 8.2 10x3/uL (4.8-10.8)
[2020-08-12 17:57] LABS: CALC OSMOLALITY 269 mosm/kg (275-300); CALCIUM 8.6 mg/dL (8.5-10.1); CHLORIDE - SERUM 102 mmol/L (98-107); CREATININE - SERUM 0.6 mg/dL (0.6-1.3); GLUCOSE 96 mg/dL (74-106); POTASSIUM - SERUM 3.7 mmol/L (3.5-5.1); SODIUM 136 mmol/L (136-145); UREA NITROGEN 8 mg/dL (7-18); eGFR NON AFRICAN AMERICAN > 90 mL/min (90-120)
[2020-08-12 17:59] LABS: ALBUMIN 3.2 g/dL (3.4-5.0); ALKALINE PHOSPHATASE 78 U/L (30-120); ALT (SGPT) 18 U/L (10-68); AMYLASE - SERUM 77 U/L (25-115); BILIRUBIN - TOTAL 0.57 mg/dL (0.2-1.3); LIPASE 99 U/L (73-393); PROTEIN - SERUM 7.1 g/dL (6.4-8.2)
[2020-08-12 18:07] LABS: NITRITE NEGATIVE (NEGATIVE)
[2020-08-12 18:08] LABS: BILIRUBIN NEGATIVE (NEGATIVE); KETONE SMALL mg/dL (NEGATIVE); UROBILINOGEN NORMAL mg/dL (< 2)
[2020-08-12] MEDS ORDERED: PRENAVITE1 TAB PO (18:26)
== END 2020-08-12 20:08 ==
LOC: D.LDO 17:02 → D.ER 17:02 → EDSTATUS 18:10 → D.LDO 20:08
PROVIDERS: Family Medicine; ATTEND Obstetrics & Gynecology
DX: O26.899 Other specified pregnancy related conditions, unspecified trimester (principal); R11.2 Nausea with vomiting, unspecified; R10.9 Unspecified abdominal pain

== ENCOUNTER 2020-09-22 10:57 | Emergency (ER) | payer BC ==
[~2020-09-22] VITALS: Ht 157.5 cm; Wt 92.7 kg
[~2020-09-22 10:57] MED LIST changes: +PRENAVITE1 TAB PO
[2020-09-22 11:03] VITALS: Ht 157.5 cm; Wt 92.7 kg
[2020-09-22 12:42] VITALS: BP 129/77
== END 2020-09-22 12:43 | disposition home or self-care (01) ==
LOC: D.ER 10:57
DX: R00.0 Tachycardia, unspecified (principal); D66 Hereditary factor VIII deficiency